=== PATIENT | male | born 1945 | race Caucasian/White ===

== ENCOUNTER 2018-12-10 15:48 | Emergency (ER) | payer MEDICARE, OTHER ==
[2018-12-10 16:36] VITALS: BP 141/83
--- NOTE | 2018-12-10 16:49 | UC ---
Respiratory Complaint HPI - HPI Summary HPI Summary: Cold symptoms for one week. Sore throat, coughing, runny nose and sinus pressure. - History of Current Complaint Chief Complaint: UCGeneralIllness Stated Complaint: COUGH,ST,RUNNY NOSE Time Seen by Provider: 12/10/18 16:30 Hx Obtained From: Patient Onset/Duration: Sudden Onset, Lasting Days Timing: Constant Severity Initially: Mild Severity Currently: Moderate Pain Intensity: 0 Character: Cough: Productive Associated Signs And Symptoms: Positive: Nasal Congestion, Sinus Discomfort - Allergies/Home Medications Allergies/Adverse Reactions: Allergies Allergy/AdvReac Type Severity Reaction Status Date / Time No Known Allergies Allergy Verified 12/10/18 16:36 Home Medications: Home Medications Aspirin 81 mg CHEW TAB* [Aspirin Low Dose TAB*] 81 mg PO DAILY 12/10/18 [ History Confirmed 12/10/18] Losartan TAB* [Cozaar TAB*] 25 mg PO DAILY 12/10/18 [History Confirmed 12/10/18] Prostate Med 12/10/18 [History] PMH/Surg Hx/FS Hx/Imm Hx Previously Healthy: Yes - Surgical History Surgical History: Yes Surgery Procedure, Year, and Place: hernia x2 - Family History Known Family History: Positive: Hypertension - Social History Alcohol Use: Daily Substance Use Type: None Smoking Status (MU): Never Smoked Tobacco Review of Systems All Other Systems Reviewed And Are Negative: Yes Constitutional: Positive: Fatigue ENT: Positive: Sore Throat, Ear Ache, Nasal Discharge, Sinus Congestion Respiratory: Positive: Cough Neurological: Positive: Headache Is Patient Immunocompromised?: No Physical Exam Triage Information Reviewed: Yes Appearance: Well-Nourished, Ill-Appearing, Pain Distress Vital Signs: Initial Vital Signs Temp 97.9 F 12/10/18 16:31 Pulse 77 12/10/18 16:31 Resp 18 12/10/18 16:31 BP 141/83 12/10/18 16:31 Pulse Ox 95 12/10/18 16:31 Vital Signs Reviewed: Yes Eye Exam: Normal ENT: Positive: Pharyngeal erythema - wiht pnd, TM bulging, Sinus tenderness - right frtal and maxillary Dental Exam: Normal Neck exam: Normal Respiratory Exam: Normal Respiratory: Positive: Chest non-tender, Lungs clear, Normal breath sounds Cardiovascular Exam: Normal Abdominal Exam: Normal Bowel Sounds: Positive: Present Musculoskeletal Exam: Normal Neurological Exam: Normal Psychological Exam: Normal Skin Exam: Normal Respiratory Course/Dx - Course Course Of Treatment: hx obtained, exam performed ,meds reviewed, - Differential Dx/Diagnosis Differential Diagnosis/HQI/PQRI: Asthma, Laryngitis, Sinusitis Provider Diagnosis: Sinusitis Discharge ED - Sign-Out/Discharge Documenting (check all that apply): Patient Departure All imaging exams completed and their final reports reviewed: No Studies - Discharge Plan Condition: Stable Disposition: HOME Patient Education Materials: Sinusitis (ED) Referrals: Poonam Raymundo MD [Primary Care Provider] - - Billing Disposition and Condition Condition: STABLE Disposition: Home
== END 2018-12-10 16:55 | disposition home or self-care (01) ==
LOC: UCCORT 15:48
DX: J32.9 Chronic sinusitis, unspecified (principal); R05 Cough; J02.9 Acute pharyngitis, unspecified; Z79.82 Long term (current) use of aspirin
CPT/HCPCS: 99202; G0463